=== PATIENT | female | born 1955 | race Hispanic/Latino ===

== ENCOUNTER 2021-12-04 01:09 | Emergency (ER) | payer OTHER ==
[~2021-12-04] VITALS: Ht 152.4 cm; Wt 71.7 kg
[2021-12-04 01:34] LABS: APPEARANCE,URINE Clear (CLEAR); BILIRUBIN,URINE Negative (NEGATIVE); COLOR,URINE Yellow (YELLOW); GLUCOSE, URINE (UA) Negative (NEGATIVE); KETONES,URINE Negative (NEGATIVE); LEUKOCYTE ESTERASE ,URINE Trace (NEGATIVE); NITRATE,URINE Negative (NEGATIVE); OCCULT BLOOD,URINE Negative (NEGATIVE); PROTEIN,URINE Negative (NEGATIVE); UROBILINOGEN,URINE 0.2 mg/dL (0.2-1.0)
[2021-12-04 01:42] LABS: BACTERIA,URINE None Seen /HPF (None Seen); RBC,URINE None Seen /HPF (0-1); WBC,URINE None Seen /HPF (0-1)
[2021-12-04] MEDS ORDERED: ONDANSETRON 4MG INJ ONE (02:21)
[2021-12-04] MEDS ORDERED: KETOROLAC 15MG/ML VIAL (15MG/ML) ONE (02:22)
[2021-12-04] MEDS ORDERED: KETOROLAC 15MG/ML VIAL (15MG/ML) IV ONE (02:30)
[2021-12-04] MEDS ORDERED: 0.9%NACL 1000ML 1,000 ML IV ONE (02:30)
[2021-12-04] MEDS ORDERED: ONDANSETRON 4MG INJ IVP ONE (02:30)
[2021-12-04 02:50] LABS: BASOPHILS % (AUTO) 0.4 % (0.0-5.0); EOSINOPHILS % (AUTO) 0.1 % (0.0-8.0); HEMATOCRIT 39.3 % (36-48); LYMPHOCYTES % (AUTO) 14.5 % (21.0-51.0); MEAN CORPUSCULAR HEMOGLOBIN 31.3 pg (27.0-33.0); MEAN CORPUSCULAR HGB CONC 34.4 g/dL (32.0-36.0); MEAN CORPUSCULAR VOLUME 91.2 fL (79-99); MONOCYTES % (AUTO) 3.5 % (3.0-13.0); NEUTROPHILS % (AUTO) 81.2 % (40.0-77.0); PLATELET COUNT (AUTO) 448 K/uL (130-400); RED BLOOD CELL COUNT(AUTO) 4.31 MIL/uL (4.00-5.50); RED CELL DISTRIBUTION WIDTH 12.5 % (11.0-15.5); WHITE BLOOD COUNT (AUTO) 14.7 K/uL (4.8-10.8)
[2021-12-04 03:02] LABS: CREATININE 1.1 mg/dL (0.5-1.5); POTASSIUM 3.5 mmol/L (3.5-5.1)
[2021-12-04 03:07] LABS: ALBUMIN 4.2 g/dL (3.5-5.0); BILIRUBIN,TOTAL 0.7 mg/dL (0.2-1.0); TOTAL PROTEIN, SERUM 8.4 g/dL (6.0-8.3)
[2021-12-04] MEDS ORDERED: ACET1TAB25 PO (03:33)
[2021-12-04] MEDS ORDERED: TAMS-1 PO (03:33)
[2021-12-04 03:35] VITALS: BP 112/55
== END 2021-12-04 03:50 | disposition home or self-care (01) ==
LOC: EDH 01:09
DX: N20.1 Calculus of ureter (principal); E11.9 Type 2 diabetes mellitus without complications; I10 Essential (primary) hypertension; Z79.1 Long term (current) use of non-steroidal anti-inflammatories (NSAID); Z79.899 Other long term (current) drug therapy; Z90.79 Acquired absence of other genital organ(s)
CPT/HCPCS: 36415; 74176; 80053; 81001; 83690; 84484; 85025; 93005; 96361; 96374; 96375; 99285; J1885; J2405; J7030

== ENCOUNTER 2022-07-13 23:58 | Emergency (ER) | payer SELFPAY ==
[~2022-07-13] VITALS: Ht 149.9 cm; Wt 73.5 kg
[~2022-07-13 23:58] MED LIST: ACET-2079 PO; TAMS-1 PO
[2022-07-14 00:38] LABS: BASOPHILS % (AUTO) 0.4 % (0.0-5.0); EOSINOPHILS % (AUTO) 0.1 % (0.0-8.0); HEMATOCRIT 32.8 % (36-48); LYMPHOCYTES % (AUTO) 18.9 % (21.0-51.0); MEAN CORPUSCULAR HEMOGLOBIN 31.3 pg (27.0-33.0); MEAN CORPUSCULAR HGB CONC 34.1 g/dL (32.0-36.0); MEAN CORPUSCULAR VOLUME 91.6 fL (79-99); MONOCYTES % (AUTO) 7.8 % (3.0-13.0); NEUTROPHILS % (AUTO) 72.5 % (40.0-77.0); PLATELET COUNT (AUTO) 285 K/uL (130-400); RED BLOOD CELL COUNT(AUTO) 3.58 MIL/uL (4.00-5.50); RED CELL DISTRIBUTION WIDTH 12.7 % (11.0-15.5); WHITE BLOOD COUNT (AUTO) 6.7 K/uL (4.8-10.8)
[2022-07-14 00:39] LABS: APPEARANCE,URINE CLEAR (CLEAR); BILIRUBIN,URINE NEGATIVE (NEGATIVE); COLOR,URINE YELLOW (YELLOW); GLUCOSE, URINE (UA) NEGATIVE (NEGATIVE); KETONES,URINE NEGATIVE (NEGATIVE); LEUKOCYTE ESTERASE ,URINE SMALL (NEGATIVE); NITRATE,URINE POSITIVE (NEGATIVE); OCCULT BLOOD,URINE TRACE-INTACT (NEGATIVE); PROTEIN,URINE NEGATIVE (NEGATIVE); UROBILINOGEN,URINE 0.2 mg/dL (0.2-1.0)
[2022-07-14 00:47] LABS: CREATININE 0.8 mg/dL (0.5-1.5); POTASSIUM 3.5 mmol/L (3.5-5.1)
[2022-07-14 00:52] LABS: ALBUMIN 3.5 g/dL (3.5-5.0); TOTAL PROTEIN, SERUM 7.8 g/dL (6.0-8.3)
[2022-07-14 01:00] LABS: BACTERIA,URINE Few /HPF (None Seen); MUCUS,URINE Rare LPF (None Seen); RBC,URINE 0-1 /HPF (0-1)
[2022-07-14] MEDS ORDERED: MORPHINE 4 MG SYG IVP ONE (01:00)
[2022-07-14] MEDS ORDERED: CEFTRIAXONE 1G VIAL IVP ONE (01:00)
[2022-07-14] MEDS ORDERED: ONDANSETRON 4MG INJ IVP ONE (01:00)
[2022-07-14 01:47] LABS: MAGNESIUM 1.9 mg/dL (1.80-2.40)
[2022-07-14] MEDS ORDERED: ACETAMINOPHEN 500 MG TABLET PO ONE (03:00)
[2022-07-14] MEDS ORDERED: ACETAMINOPHEN 500 MG TABLET ONE (03:01)
[2022-07-14] MEDS ORDERED: ONDA4TAB10 PO (03:46)
[2022-07-14] MEDS ORDERED: SULF1TAB42 PO (03:46)
[2022-07-14] MEDS ORDERED: FAMO-136 PO (03:46)
[2022-07-14] MEDS ORDERED: MAG/ALUM/SIMETH 30 ML UDCUP ONE (03:50)
[2022-07-14 03:51] VITALS: BP 110/53
[2022-07-14] MEDS ORDERED: MAG/ALUM/SIMETH 30 ML UDCUP PO ONE (04:00)
== END 2022-07-14 04:00 | disposition home or self-care (01) ==
LOC: EDH 07-14 00:03
DX: N12 Tubulo-interstitial nephritis, not specified as acute or chronic (principal); E11.9 Type 2 diabetes mellitus without complications; E78.00 Pure hypercholesterolemia, unspecified; I10 Essential (primary) hypertension; Z90.79 Acquired absence of other genital organ(s)
CPT/HCPCS: 99285; 74176; 96374; 96375; 83735; 84484; 80053; 83690; 85025; 87040 ×2; 87077; 87088; 87186; 83605; 81001; 36415 ×2; 93005; J0696; J2405; J2270